=== PATIENT | female | born 2005 | race Caucasian/White ===

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

== ENCOUNTER 2024-01-28 16:47 | Emergency (ER) | payer OTHER, SELFPAY ==
--- NOTE | ~2024-01-28 | XR_ITS ---
EXAMINATION: XR heel RT min 2V DATE: 01/28/2024 17:25 INDICATION: Trauma to the right heel TECHNIQUE: Lateral and axial views of the right heel/calcaneus were obtained. COMPARISON: None. FINDINGS: Alignment is normal. No fracture. Joint spaces are normal. Soft tissues are unremarkable. IMPRESSION: 1. . Negative right heel/calcaneus radiographs. Reviewed, dictated and finalized at location A.
[2024-01-28 17:02] VITALS: BP 120/51; PULSE 82; RESP 18; TEMP 37.2; O2SAT 100
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
== END 2024-01-28 17:44 | disposition home or self-care (01) ==
PROVIDERS: Emergency Provider Registered Nurse; PCP Family Medicine
DX: S90.31XA Contusion of right foot, initial encounter (principal); W22.8XXA Striking against or struck by other objects, initial encounter; J45.909 Unspecified asthma, uncomplicated
CPT/HCPCS: 73650; 99213; G0463

== ENCOUNTER 2024-03-18 14:43 | Outpatient (CLI) | payer OTHER, SELFPAY ==
--- NOTE | ~2024-03-18 | US_ITS ---
EXAMINATION: US pelvic complete DATE: 03/18/2024 14:57 INDICATION: Unspecified right lower quadrant abdominal pain TECHNIQUE: Multiple transabdominal sonographic images of the pelvis were obtained. COMPARISON: None. FINDINGS: The uterus measures 6.5 x 4.4 x 3.1 cm. The endometrial complex measures 10 mm in thickness. The rig ht and left ovaries were unable to be visualized. There is no free fluid in the pelvis. Gas and stool filled bowel is seen in the right lower quadrant. A dilated appendix is not visualized. IMPRESSION: 1. Normal uterus. Appendix and bilateral ovaries were unable to be visualized. Reviewed, dictated and finalized at location B.
== END 2024-03-18 14:44 ==
PROVIDERS: PCP Family Medicine; Visit Provider Student in an Organized Health Care Education/Training Program
DX: R10.9 Unspecified abdominal pain (principal)
CPT/HCPCS: 76856